=== PATIENT | female | born 1990 | race Caucasian/White ===

== ENCOUNTER 2021-07-11 08:56 | Emergency (ER) | payer OTHER ==
[~2021-07-11] VITALS: Ht 172.7 cm; Wt 95.3 kg
[2021-07-11] MEDS ORDERED: NAPROXEN250 MG PO (10:36)
[2021-07-11] MEDS ORDERED: TYLENOL325 M1 PO (10:36)
[2021-07-11] MEDS ORDERED: ZOFRAN4 MG PO (10:36)
== END 2021-07-11 11:09 | disposition home or self-care (01) ==
LOC: ED 08:56
DX: J02.9 Acute pharyngitis, unspecified (principal); Z20.822 Contact with and (suspected) exposure to COVID-19; R05.9 Cough, unspecified